=== PATIENT | female | born 1975 | race Caucasian/White ===

== ENCOUNTER 2017-06-14 16:37 | Emergency (ER) | payer MEDICAID ==
[2017-06-14 18:53] LABS: ABS Basophils 0.1 10^3/ul (0-0.2); ABS Eosinophils 0.3 10^3/ul (0-0.6); ABS Lymphocytes 2.4 10^3/ul (1.0-4.8); ABS Monocytes 1.3 10^3/ul (0-0.8); ABS Neutrophils 10.5 10^3/ul (1.5-7.7); ABS Nucleated RBC 0 10^3/ul; Eosinophil % 1.9 % (0-6); Hematocrit 45 % (35-47); Hemoglobin 15.2 g/dl (12.0-16.0); Lymphocyte % 16.7 % (25-47); Mean Corpuscular HGB Conc 34 g/dl (31-36); Mean Corpuscular Hemoglobin 31 pg (27-31); Mean Corpuscular Volume 90 fL (80-97); Mean Platelet Volume 7 um3 (7.4-10.4); Nucleated Red Blood Cells % 0; Platelet Count 407 10^3/ul (150-450); Red Blood Count 4.94 10^6/ul (4.0-5.4); Red Cell Distribution Width 13 % (10.5-15); White Blood Count 14.5 10^3/ul (3.5-10.8)
[2017-06-14 19:23] LABS: EGFR Non-African American 112.3 (>60)
[2017-06-14] MEDS ORDERED: Lidocaine 2% PF * 5 ML VIAL ONE ×2 (21:26)
[2017-06-14] MEDS: Ketorolac INJ* 60 MG/2 ML VIAL IM ONE (21:53)
[2017-06-14] MEDS: Clindamycin CAP* 150 MG PO ONE (21:53)
[2017-06-14 22:07] VITALS: BP 117/69
--- NOTE | 2017-06-14 22:24 | ED ---
Cedric Milton Stephanie, scribed for Mayela Newsome MD on 06/14/17 at 2134 . Skin Complaint - HPI Summary HPI Summary: The pt is a 42 y/o F presenting to the ED with c/o an abscess on her L calf that began 4 days ago. The pt states she had a fever 2 days ago but has resolves. The pt is a heroin user and reports injecting on a site near the abscess 2 weeks ago. She reports using clean needles and not sharing needles. The pt states the abscess began to ooze while in ED. - History of Current Complaint Chief Complaint: EDRashSkinAbscess Time Seen by Provider: 06/14/17 21:12 Stated Complaint: LT LEG PAIN Hx Obtained From: Patient Onset/Duration: Started Days Ago - 4, Still Present Skin Exposure Onset/Duration: Weeks Ago - 2 Timing: Constant Pain Intensity: 8 Pain Scale Used: 0-10 Numeric Skin Location: Leg - L calf Character: Pain, Redness Aggravating Symptom(s): Touch Alleviating Symptom(s): Nothing Associated Signs & Symptoms: Drainage - Allergy/Home Medications Allergies/Adverse Reactions: Allergies Allergy/AdvReac Type Severity Reaction Status Date / Time No Known Allergies Allergy Verified 06/14/17 17:05 PMH/Surg Hx/FS Hx/Imm Hx Sensory History: Denies: Hx Legally Blind EENT History: Denies: Hx Deafness - Surgical History Surgery Procedure, Year, and Place: TUBAL LIGATION AUGUST 2002. BRAIN SURGERY 2009 Infectious Disease History: No Infectious Disease History: Reports: Hx Hepatitis - C Denies: Traveled Outside the [place] in Last 30 Days - Family History Known Family History: Positive: Other - cancer - Social History Occupation: Unemployed Lives: With Family Substance Use Type: Reports: Heroin Review of Systems Negative: Fever Positive: Other - abscess All Other Systems Reviewed And Are Negative: Yes Physical Exam - Summary Physical Exam Summary: VITAL SIGNS: Reviewed. GENERAL: Patient is a well-developed and nourished FEMALE who is lying comfortable in the stretcher. Patient is not in any acute respiratory distress. HEAD AND FACE: No signs of trauma. No ecchymosis, hematomas or skull depressions. No sinus tenderness. EYES: PERRLA, EOMI x 2, No injected conjunctiva, no nystagmus. EARS: Hearing grossly intact. Ear canals and tympanic membranes are within normal limits. MOUTH: Oropharynx within normal limits. NECK: Supple, trachea is midline, no adenopathy, no JVD, no carotid bruit, no c- spine tenderness, neck with full ROM. CHEST: Symmetric, no tenderness at palpation LUNGS: Clear to auscultation bilaterally. No wheezing or crackles. CVS: Regular rate and rhythm, S1 and S2 present, no murmurs or gallops appreciated. ABDOMEN: Soft, non-tender. No signs of distention. No rebound no guarding, and no masses palpated. Bowel sounds are normal. EXTREMITIES: Edema in L leg, no cyanosis or clubbing. She has localized fluctuation 1.5 in in diameter with purulent discharge NEURO: Alert and oriented x 3. No acute neurological deficits. Speech is normal and follows commands. SKIN: Dry and warm Triage Information Reviewed: Yes Vital Signs On Initial Exam: Initial Vitals Temp Pulse Resp BP Pulse Ox 96.5 F 99 17 109/77 99 06/14/17 17:02 06/14/17 17:02 06/14/17 17:02 06/14/17 17:02 06/14/17 17:02 Vital Signs Reviewed: Yes Procedures - Incision and Drainage Site: L lower leg Anesthesia: Lidocaine - anesthesia local 2 % Instrument(s): Scalpel - 11 blade, 1 cm incision, a large amount of blood mixed with pus came out. loculi broken. 15 cc pus and blood . Cutlure sent Packing: Other - Audiform .5 inch. Diagnostics - Vital Signs Vital Signs Temp Pulse Resp BP Pulse Ox 06/14/17 19:12 97.9 F 99 18 109/65 98 06/14/17 17:02 96.5 F 99 17 109/77 99 - Laboratory Lab Results: Lab Results 06/14/17 06/14/17 Range/Units 18:35 18:35 WBC 14.5 H (3.5-10.8) 10^3/ul RBC 4.94 (4.0-5.4) 10^6/ul Hgb 15.2 (12.0-16.0) g/dl Hct 45 (35-47) % MCV 90 (80-97) fL MCH 31 (27-31) pg MCHC 34 (31-36) g/dl RDW 13 (10.5-15) % Plt Count 407 (150-450) 10^3/ul MPV 7 L (7.4-10.4) um3 Neut % (Auto) 72.2 (38-83) % Lymph % (Auto) 16.7 L (25-47) % [place] % (Auto) 8.8 (1-9) % Eos % (Auto) 1.9 (0-6) % Baso % (Auto) 0.4 (0-2) % Absolute Neuts (auto) 10.5 H (1.5-7.7) 10^3/ul Absolute Lymphs (auto) 2.4 (1.0-4.8) 10^3/ul Absolute Monos (auto) 1.3 H (0-0.8) 10^3/ul Absolute Eos (auto) 0.3 (0-0.6) 10^3/ul Absolute Basos (auto) 0.1 (0-0.2) 10^3/ul Absolute Nucleated RBC 0 10^3/ul Nucleated RBC % 0 Sodium 133 (133-145) mmol/L Potassium 3.6 (3.5-5.0) mmol/L Chloride 94 L (101-111) mmol/L Carbon Dioxide 31 (22-32) mmol/L Anion Gap 8 (2-11) mmol/L BUN 10 (6-24) mg/dL Creatinine 0.59 (0.51-0.95) mg/dL Est GFR ( Amer) 144.5 (>60) Est GFR (Non-Af Amer) 112.3 (>60) BUN/Creatinine Ratio 16.9 (8-20) Glucose 63 L (70-100) mg/dL Calcium 10.2 (8.6-10.3) mg/dL Total Bilirubin 0.50 (0.2-1.0) mg/dL AST 26 (13-39) U/L ALT 31 (7-52) U/L Alkaline Phosphatase 63 (34-104) U/L Total Protein 8.8 (6.4-8.9) g/dL Albumin 4.6 (3.2-5.2) g/dL Globulin 4.2 H (2-4) g/dL Albumin/Globulin Ratio 1.1 (1-3) Result Diagrams: 06/14/17 18:35 06/14/17 18:35 Lab Statement: Any lab studies that have been ordered have been reviewed, and results considered in the medical decision making process. Course/Dx - Course Course Of Treatment: ED physician described plan of I&D and admission of PT for IV abx. The pt tolerated procedure well. The pt does not want to be admitted and will leave AMA after I&D procedure and with a prescription for abx. The pt is advised of possible bacteremia and septicemia which could possibly lead to amputation of L leg. The pt will leave AMA. The pt is discharged with oral abx. - Diagnoses Provider Diagnoses: abscess in L leg, Cellulitis of left leg Discharge - Discharge Plan Condition: Stable Disposition: AGAINST MEDICAL ADVICE Prescriptions: Clindamycin Cap(NF) [Clindamycin Cap 300 mg Cap(NF)] 300 mg PO Q6H #30 cap Ibuprofen TAB* [Motrin TAB* 600 MG] 600 mg PO Q6H PRN #30 tab PRN Reason: Pain Patient Education Materials: Cellulitis (ED), Abscess (ED) Referrals: No Primary Care Phys,NOPCP [Primary Care Provider] - 3 Days Additional Instructions: Return to ED on Sunday06/16/17 for abscess follow-up. RETURN TO EMERGENCY DEPARTMENT FOR ANY NEW OR WORSENING SYMPTOMS The documentation as recorded by the Cedric delatorre Stephanie accurately reflects the service I personally performed and the decisions made by , Mayela Newsome MD.
--- NOTE | 2017-06-15 09:12 | ED ---
Progress - Progress Note Progress Note: Patient's wound culture reveals MRSA and staph aureus. Patient was discharged on clindamycin which is appropriate preliminary treatment. Awaiting final culture and sensitivities. No change in treatment at this time. Course/Dx - Course Course Of Treatment: ED physician described plan of I&D and admission of PT for IV abx. The pt tolerated procedure well. The pt does not want to be admitted and will leave AMA after I&D procedure and with a prescription for abx. The pt is advised of possible bacteremia and septicemia which could possibly lead to amputation of L leg. The pt will leave AMA. The pt is discharged with oral abx. - Diagnoses Provider Diagnoses: abscess in L leg, Cellulitis of left leg
--- NOTE | 2017-06-17 08:57 | PN ---
Progress Note - Progress Note Date of Service: 06/14/17 Note: MRSA and s. aureus positive on culture results. clindamycin at discharge which shows bacteria is susceptible and therefore no further action/changes required at this time.
== END 2017-06-14 22:32 | disposition left against medical advice (07) ==
LOC: ED 16:37
DX: L02.416 Cutaneous abscess of left lower limb (principal); B95.62 Methicillin resistant Staphylococcus aureus infection as the cause of diseases classified elsewhere; Z53.21 Procedure and treatment not carried out due to patient leaving prior to being seen by health care provider
CPT/HCPCS: 10060; 36415; 80053; 85025; 87040; 87070; 87077; 87186; 87205; 87640; 87641; 96372; 99284; A9270-GY; J1885

== ENCOUNTER 2017-06-17 13:17 | Emergency (ER) | payer MEDICAID ==
[2017-06-17 13:21] VITALS: BP 86/49
--- NOTE | 2017-06-17 15:17 | ED ---
ED Suture/Wound Check - HPI Summary HPI Summary: 42 female presents to ED with complaints of needing to have her wound re-packed after an I&D 3 days ago. Patient was supposed to be admitted 3 days ago however signed out AMA. Abscess was i&d'd 3 days ago. Placed on clindamycin. MRSA and staph aureus positive. No other complaints. No PMHx. No fever/chills or increased pain. No other abscesses or rash. Just wants wound rechecked, repacked and dressing changed. Has been taking medication as prescribed. Is an IV drug user. - History Of Current Complaint Chief Complaint: EDGeneral Stated Complaint: ABSCESS Time Seen by Provider: 06/17/17 14:07 Hx Obtained From: Patient Onset/Duration: Sudden Onset Surgical Site: left lower leg Severity: Mild Pain Intensity: 3 Pain Scale Used: 0-10 Numeric Procedure Type: I&D Surgery Date: 06/14/17 Full Body (No Head): 1 - abscess I&D site - Allergies/Home Medications Allergies/Adverse Reactions: Allergies Allergy/AdvReac Type Severity Reaction Status Date / Time No Known Allergies Allergy Verified 06/14/17 17:05 PMH/Surg Hx/FS Hx/Imm Hx Endocrine/Hematology History: Denies: Hx Diabetes Cardiovascular History: Denies: Hx Hypertension Sensory History: Denies: Hx Legally Blind, Hx Deafness Opthamlomology History: Denies: Hx Legally Blind - Surgical History Surgery Procedure, Year, and Place: TUBAL LIGATION AUGUST 2002. BRAIN SURGERY 2009 - Immunization History Immunizations Up to Date: Yes Infectious Disease History: No Infectious Disease History: Reports: Hx Hepatitis - C Denies: Traveled Outside the [place] in Last 30 Days - Family History Known Family History: Positive: Other - cancer - Social History Alcohol Use: Occasionally Substance Use Type: Reports: Heroin Smoking Status (MU): Heavy Every Day Tobacco Smoker Review of Systems Constitutional: Negative Cardiovascular: Negative Respiratory: Negative Positive: Other - abscess re check All Other Systems Reviewed And Are Negative: Yes Physical Exam Triage Information Reviewed: Yes Vital Signs On Initial Exam: Initial Vitals Temp Pulse Resp BP Pulse Ox 97.4 F 70 16 86/49 99 06/17/17 13:19 06/17/17 13:19 06/17/17 13:19 06/17/17 13:19 06/17/17 13:19 Vital Signs Reviewed: Yes Appearance: Positive: Well-Appearing, No Pain Distress, Well-Nourished Skin: Positive: Warm, Skin Color Reflects Adequate Perfusion, Dry, Erythema @ - very minimal at abscess I&D area, no new abscess formation, appear to be healing nicely, Other - left lower leg surgical site appears to be healing nicely, improved since last visit. draining appropriately, packing removed and repacked without complication, wound irrigated prior to re-pack and re-dressing. Head/Face: Positive: Normal Head/Face Inspection Neck: Positive: Supple, Nontender, No Lymphadenopathy Respiratory/Lung Sounds: Positive: Clear to Auscultation, Breath Sounds Present. Negative: Rales, Rhonchi, Wheezes Cardiovascular: Positive: Normal, RRR, Pulses are Symmetrical in both Upper and Lower Extremities - 2+ pedal, Leg Edema Left - at area of abscess I&D site minimal. Negative: Murmur, Rub Musculoskeletal: Positive: Normal, Strength/ROM Intact, Pain @ - minimal at area of abscess I&D area Neurological: Positive: Normal, Sensory/Motor Intact, Alert, Oriented to Person Place, Time Procedures - Incision and Drainage Packing: Gauze - 1/4 idoform removed and then repacked and re dressed Diagnostics - Vital Signs Vital Signs Temp Pulse Resp BP Pulse Ox 06/17/17 13:19 97.4 F 70 16 86/49 99 - Laboratory Lab Statement: Any lab studies that have been ordered have been reviewed, and results considered in the medical decision making process. Course/Dx - Course Course Of Treatment: dressing was removed. packing was removed. I&D abscess site was irrigated with normal saline. dried. new packing 1/4 idoform placed. re -dressed. patient tolerated procedure well and without complication. no other concerns. appears to be healing without any abscess formation, draining appropriately and minimal erythema. follow up in 3 days for another recheck and packing/dressing change. continue anitbiotic. updated that culture results were + MRSA and s, aureus. aware of worsening sgins and symptoms to watch out for. no other concerns at this time. normal vitals. - Differential Diagnoses Differential Diagnoses: Abscess, Cellulitis, Healing Wound, Other - wound recheck, repack I&D abscess site - Clinical Impression Provider Diagnoses: Encounter for wound re-check, Healing wound Discharge - Discharge Plan Condition: Stable Disposition: HOME Patient Education Materials: Abscess (ED), Abscess Follow-up (ED), Abscess Incision and Drainage (DC) Referrals: No Primary Care Phys,NOPCP [Primary Care Provider] - Additional Instructions: Please have wound re-packed and check in 2-3 days. Keep clean and dry. Do not remove dressing. Continue taking antibiotics. Increase fluid intake. Any new or worsening symptoms please seek medical attention. Follow up with PCP.
== END 2017-06-17 15:25 | disposition home or self-care (01) ==
LOC: ED 13:17
DX: Z48.00 Encounter for change or removal of nonsurgical wound dressing (principal); L02.416 Cutaneous abscess of left lower limb; B95.62 Methicillin resistant Staphylococcus aureus infection as the cause of diseases classified elsewhere; F17.200 Nicotine dependence, unspecified, uncomplicated